=== PATIENT | female | born 1955 | race Caucasian/White ===

== ENCOUNTER 2017-05-03 07:26 | Observation (INO) | payer BC ==
[2017-05-01 11:32] LABS: BASOPHILS % 0.4 % (0.0-1.0); EOSINOPHILS # (AUTO) 0.1 (0.0-0.4); EOSINOPHILS % 1.3 % (0.0-6.0); HEMATOCRIT 40.4 % (34.2-44.1); HEMOGLOBIN 13.4 g/dL (12.0-16.0); LYMPHOCYTES # (AUTO) 3.1 (1.0-3.2); LYMPHOCYTES % 46.2 % (18.0-39.1); MEAN CORPUSCULAR HGB CONC 33.2 g/dL (31-35); MEAN CORPUSCULAR VOLUME 90.6 fL (81-99); MONOCYTES # (AUTO) 0.4 (0.2-0.8); NEUTROPHILS # (AUTO) 3.1 (2.1-6.9); NEUTROPHILS % 45.8 % (38.7-80.0); PLATELET COUNT 301 x10e3/uL (140-360); RED BLOOD COUNT 4.46 x10e6/uL (3.6-5.1); RED CELL DISTRIBUTION WIDTH 12.8 % (11.7-14.4)
[2017-05-01 11:47] LABS: INR 0.91; PROTHROMBIN TIME 12.7 seconds (11.9-14.5)
[2017-05-01 11:48] LABS: PARTIAL THROMBOPLASTIN TIME 25.1 seconds (23.8-35.5)
[2017-05-01 11:59] LABS: ANION GAP 12.8 mmol/L (8-16); BLOOD UREA NITROGEN 10 mg/dL (7-26); BUN/CREATININE RATIO 15 (6-25); CALCIUM 9.9 mg/dL (8.4-10.2); CARBON DIOXIDE 28 mmol/L (22-29); CHLORIDE 104 mmol/L (98-107); CREATININE, SERUM 0.67 mg/dL (0.57-1.11); EST GLOMERULAR FILTRATION RATE > 60 ML/MIN (60-); GLUCOSE 89 mg/dL (74-118); POTASSIUM 3.8 mmol/L (3.5-5.1); SODIUM 141 mmol/L (136-145)
--- NOTE | 2017-05-01 12:06 | Diagnostic Imaging Report ---
PROCEDURE: Frontal and lateral views of the chest. COMPARISON: None. INDICATIONS: PRE OPERATIVE CHEST X-RAY FOR C-SPINE SURGERY FINDINGS: Lines/tubes: None. Lungs: The lungs are well inflated and clear. There is no evidence of pneumonia or pulmonary edema. Pleura: There is no pleural effusion or pneumothorax. Heart and mediastinum: The heart and the mediastinum are normal. Bones: No acute bony abnormality. Cervical fusion hardware is partially visualized. IMPRESSION: 1. No acute cardiopulmonary disease. Dictated by: Chino Fiore M.D. on 05/01/2017 at 12:15 Electronically approved by: Chino Fiore M.D. on 05/01/2017 at 12:15
[~2017-05-03] VITALS: Ht 157.5 cm; Wt 59.4 kg
[~2017-05-03 07:26] MED LIST: BACITRACIN 50,000 UNIT VIAL ONE; BACLOFEN10 MG PO; GELATIN SPONGE SZ 100 ONE; HYDROCODONE PO; NAPROXEN PO; NORCO 10-325 T1 EACH PO; THROMBIN FOR SOLN 5,000 UNIT VIAL ONE; VITAMIN C500 M4 PO; VITAMIN D400 UNIT PO
[2017-05-03] MEDS ORDERED: LIDOCAINE HCL (LTA) 4 ML SOLN ONE (07:31)
[2017-05-03] MEDS ORDERED: CEFAZOLIN SOD 1 GM/NS 50ML 50 ML IV ONE (07:48)
[2017-05-03] MEDS ORDERED: CEPACOL SORE THROAT LOZENGES PO PRN (11:15)
[2017-05-03] MEDS ORDERED: MAGNESIUM/ALUMINUM/SIMETHICONE 30 ML UDC PO PRN (11:15)
[2017-05-03] MEDS ORDERED: ONDANSETRON HCL INJ 2 MG/ML VIAL IV PRN (11:15)
[2017-05-03] MEDS ORDERED: PROMETHAZINE HCL (IM) 25 MG/ML VIAL IM PRN (11:15)
[2017-05-03] MEDS ORDERED: HYDROMORPHONE 2MG/ML INJ IV PRN (11:15)
[2017-05-03] MEDS ORDERED: ACETAMINOPHEN 325 MG TAB PO PRN (11:15)
[2017-05-03] MEDS ORDERED: MORPHINE SULFATE 5 MG/ML VIAL IM PRN (11:15)
[2017-05-03] MEDS ORDERED: FENTANYL CITRATE/PF 100MCG/2 ML INJ ONE ×2 (11:43→15:21)
[2017-05-03] MEDS: CARISOPRODOL 350 MG TAB PO PRN ×3 (12:18→22:23)
[2017-05-03] MEDS: OXYCODONE/ACETAMINOPHEN 5-325 1 EACH TABLET PO PRN ×3 (12:18→22:23)
[2017-05-03 12:23] VITALS: BP 138/63
[2017-05-03 13:14] VITALS: BP 138/63
[2017-05-03] MEDS ORDERED: CEFAZOLIN SOD 1 GM/NS 50ML 50 ML IV SCH (14:00)
[2017-05-03] MEDS ORDERED: GLYCOPYRROLATE INJ 1MG/ 5 ML SYR ONE (14:12)
[2017-05-03] MEDS ORDERED: NEOSTIGMINE 1 MG/ML 10ML VIAL ONE (14:12)
[2017-05-03] MEDS ORDERED: DEXAMETHASONE SOD PHOS INJ 4 MG/ML VIAL ONE (14:12)
[2017-05-03] MEDS ORDERED: ROCURONIUM BROMIDE 10 MG/ML 5ML VIAL ONE (14:12)
[2017-05-03] MEDS ORDERED: PROPOFOL IV EMULSION 10 MG/ML 20 ML VIAL ONE (14:12)
[2017-05-03] MEDS ORDERED: ONDANSETRON HCL INJ 2 MG/ML VIAL ONE (14:12)
[2017-05-03] MEDS ORDERED: SEVOFLURANE INHAL SOLN 250 ML PEN BTL ONE (14:12)
[2017-05-03] MEDS ORDERED: EPHEDRINE SULFATE INJ 50 MG/10 ML SYR ONE (14:12)
[2017-05-03] MEDS ORDERED: LIDOCAINE HCL 2% JELLY 5 ML TUBE ONE (14:12)
[2017-05-03] MEDS ORDERED: LIDOCAINE HCL 2% LOCAL INJ 5 ML SDV VIAL INJ ONE (14:12)
[2017-05-03] MEDS ORDERED: IBUPROFEN 400 MG TAB PO PRN (14:45)
--- NOTE | 2017-05-03 15:15 | Operative Report ---
DATE OF PROCEDURE: May 03, 2017 PREOPERATIVE DIAGNOSIS: C4-5 spondylosis and foraminal stenosis above the level of previous C5-6 fusion, M50.121. POSTOPERATIVE DIAGNOSIS: C4-5 spondylosis and foraminal stenosis above the level of previous C5-C6 fusion, M50.121. PROCEDURES 1. C4-5 anterior cervical diskectomy and microsurgical osteophyte resection and allograft fusion, 24207. 2. Preparation of MTF cortical cancellous allograft, 48100. 3. C4-5 anterior cervical plating with Synthes ZP endplate, 54837. 4. Removal of C5-6 plate, . 5. Exploration of C5-6 fusion, . ANESTHESIA: General. INDICATIONS: The patient is a woman who has previously undergone C5-6 anterior cervical diskectomy, fusion, and plating by me with good results. She now presents with C4-5 spondylosis and foraminal stenosis above the level of her previous fusion, symptomatic with a right C5 radiculopathy. She was taken to the operating room for decompression of the C4-5 segment and extension of her fusion. PROCEDURE: After induction of general anesthesia, the patient was placed on the operating table in supine position. The right side of the neck was prepped and draped in sterile fashion. The fluoroscopic C-arm was positioned in cross-table lateral orientation. A transverse incision was created on right side of the neck superimposed on the C4-5 disk space as determined by fluoroscopy. The platysma was divided in line with the incision. A subplatysmal dissection was carried out. An avascular plane of dissection was developed medial to the sternocleidomastoid muscle and was followed medial to the carotid sheath through the previous scar layer to the anterior border of the cervical spine. The deep cervical fascia was opened. The scar layer overlying the previous anterior cervical plate was resected and the plate was exposed. Each of the 4 locking screws and bone screws within the previous plate were unscrewed and removed. The plate was mobilized and removed. The C5-6 fusion was explored and found to be solid. Attention was directed to the C4-5 segment. The anterior longitudinal ligament was resected. The anterior osteophyte was resected. Ridgway posts were inserted into C4 and C5. The Ridgway distractor was used to distract the disk space. The anterior annulus of the disk was incised with a #11 blade and the contents of the disk were thoroughly evacuated with angled curettes and pituitary rongeurs. The posterior osteophytes were meticulously drilled until they were completely removed. The posterior annulus of the disk was resected. Herniated disk material was resected. The posterior longitudinal ligament was completely resected from [id number] to fully expose and decompress the origins of the corresponding nerve roots. The medial aspects of the uncinate processes were resected to further expose and decompress the origins of both nerve roots particularly on the right side. After satisfactory decompression had been achieved, the endplates were prepared for fusion. The disk space was sized and found to be 7 mm in height. A piece of MTF cortical cancellous allograft, measuring 7 mm in thickness, was selected and prepared in saline and loaded onto a Synthes ZP endplate. The construct was then inserted into the C4-C5 disk space under lateral fluoroscopic guidance and tamped in place until the plate was flush with the anterior margin of the vertebral bodies. The plate was then screwed to the endplates of C4 and C5 with 2 pairs of 14 mm screws. All screws were locked. An excellent construct was obtained. The wound was copiously irrigated with Bacitracin solution. Meticulous hemostasis was secured. Retractor was removed. The platysma was closed with 3-0 Vicryl sutures. The skin was closed with 4-0 Monocryl sutures in a subcuticular fashion. Steri-Strips and dressing were applied. The patient was awakened, extubated, and taken to postanesthesia care unit in stable condition. No intraoperative complications were encountered. Estimated blood loss was 10 mL. Job#: [id number] MAIA
[2017-05-03] MEDS ORDERED: MIDAZOLAM HCL 2 MG/2 ML VIAL ONE (15:21)
[2017-05-03 16:10] VITALS: BP 115/67
[2017-05-03] MEDS: LACTATED RINGER'S 1,000 ML IV SCH ×2 (16:40→22:24)
[2017-05-03] MEDS: BACLOFEN 10 MG TAB PO SCH (17:00)
[2017-05-03] MEDS: CEFAZOLIN SOD 1 GM VIAL IV SCH (17:15)
[2017-05-03 20:05] VITALS: BP 106/51
[2017-05-03] MEDS ORDERED: ZOLPIDEM TARTRATE 5 MG TAB PO PRN (21:00)
[2017-05-03 23:00] VITALS: BP 84/48
[2017-05-04 00:10] VITALS: BP 94/53
[2017-05-04] MEDS: CEFAZOLIN SOD 1 GM VIAL IV SCH ×2 (01:54→09:12)
[2017-05-04] MEDS: OXYCODONE/ACETAMINOPHEN 5-325 1 EACH TABLET PO PRN ×2 (02:35→06:29)
[2017-05-04] MEDS: CARISOPRODOL 350 MG TAB PO PRN ×2 (02:35→06:29)
[2017-05-04] MEDS: LACTATED RINGER'S 1,000 ML IV SCH (04:11)
[2017-05-04 05:00] VITALS: BP 104/56
[2017-05-04 08:26] VITALS: BP 103/51
[2017-05-04] MEDS ORDERED: HYDROCODONE/APAP 10MG-325MG TAB PO SCH (09:00)
[2017-05-04] MEDS: BACLOFEN 10 MG TAB PO SCH (09:11)
--- NOTE | 2017-05-04 11:40 | Diagnostic Imaging Report ---
C-SPINE 2 VIEWS AP LATERAL Comparison: None available Clinical history: Status post surgery Findings: Postsurgical change status post C4-5 ACDF with interbody spacer. There is fusion of C5-6. Slight straightening of the normal cervical lordosis with minimal retrolisthesis of C3 on C4. Degenerative changes at are noted primarily at C3-4, C6-7. Impression: Postsurgical changes status post C4-5 ACDF. Signed by: Dr Jasmyn Iyer MD on 05/04/2017 6:54 AM
== END 2017-05-04 09:31 | disposition home or self-care (01) ==
LOC: OR 07:26 → IMCU 11:39
PROVIDERS: ADMIT Neurological Surgery; ATTEND Neurological Surgery
DX: M50.121 Cervical disc disorder at C4-C5 level with radiculopathy (principal); M47.22 Other spondylosis with radiculopathy, cervical region; M19.90 Unspecified osteoarthritis, unspecified site; M47.896 Other spondylosis, lumbar region; M81.0 Age-related osteoporosis without current pathological fracture; F17.210 Nicotine dependence, cigarettes, uncomplicated
CPT/HCPCS: 20931; 22551; 22830; 22845; 22855; 36415; 71020; 72040; 76000; 80048; 85025; 85610; 85730; 86850; 86900; 88300; 88304; 93005; C1713 ×2; G0378 ×2; J0690 ×2; J1100; J2001 ×2; J2250; J2270; J2405; J2710; J7120

== ENCOUNTER → 2017-08-23 | Outpatient (CLI) | payer BC ==
[~2017-08-23] MED LIST changes: -BACITRACIN 50,000 UNIT VIAL ONE; -GELATIN SPONGE SZ 100 ONE; -THROMBIN FOR SOLN 5,000 UNIT VIAL ONE
[2017-08-23 08:47] LABS: BASOPHILS % 0.5 % (0.0-1.0); EOSINOPHILS # (AUTO) 0.2 (0.0-0.4); EOSINOPHILS % 2.9 % (0.0-6.0); HEMATOCRIT 37.9 % (34.2-44.1); HEMOGLOBIN 12.8 g/dL (12.0-16.0); LYMPHOCYTES # (AUTO) 3.6 (1.0-3.2); LYMPHOCYTES % 55.8 % (18.0-39.1); MEAN CORPUSCULAR HEMOGLOBIN 30.2 pg (28-32); MEAN CORPUSCULAR HGB CONC 33.8 g/dL (31-35); MEAN CORPUSCULAR VOLUME 89.4 fL (81-99); MONOCYTES # (AUTO) 0.5 (0.2-0.8); MONOCYTES % 8.2 % (4.4-11.3); NEUTROPHILS # (AUTO) 2.1 (2.1-6.9); NEUTROPHILS % 32.4 % (38.7-80.0); PLATELET COUNT 226 x10e3/uL (140-360); RED BLOOD COUNT 4.24 x10e6/uL (3.6-5.1); RED CELL DISTRIBUTION WIDTH 12.8 % (11.7-14.4)
[2017-08-23 08:50] LABS: BILIRUBIN,URINE NEGATIVE (NEGATIVE); CLARITY,URINE CLEAR (CLEAR); COLOR,URINE YELLOW (YELLOW); KETONES,URINE NEGATIVE (NEGATIVE); LEUKOCYTE ESTERASE ,URINE NEGATIVE (NEGATIVE); NITRITE,URINE NEGATIVE (NEGATIVE); PROTEIN,URINE DIPSTICK NEGATIVE (NEGATIVE); URINE UROBILINOGEN 0.2 mg/dL (0.2 - 1)
[2017-08-23 08:56] LABS: INR 1.05; PROTHROMBIN TIME 12.9 seconds (11.9-14.5)
[2017-08-23 09:05] LABS: ALANINE AMINOTRANSFERASE 17 IU/L (0-55); ALBUMIN 4.3 g/dL (3.5-5.0); ALBUMIN/GLOBULIN RATIO 1.4 (0.8-2.0); ALKALINE PHOSPHATASE 80 IU/L (40-150); ANION GAP 12.6 mmol/L (8-16); BLOOD UREA NITROGEN 10 mg/dL (7-26); BUN/CREATININE RATIO 15 (6-25); CALCIUM 10.1 mg/dL (8.4-10.2); CARBON DIOXIDE 28 mmol/L (22-29); CHLORIDE 102 mmol/L (98-107); CREATININE, SERUM 0.67 mg/dL (0.57-1.11); EST GLOMERULAR FILTRATION RATE > 60 ML/MIN (60-); GLUCOSE 101 mg/dL (74-118); POTASSIUM 4.6 mmol/L (3.5-5.1); SODIUM 138 mmol/L (136-145)
== END ==
LOC: LAB 08:21
PROVIDERS: ATTEND Orthopaedic Surgery Orthopaedic Surgery of the Spine
DX: Z01.810 Encounter for preprocedural cardiovascular examination (principal)
CPT/HCPCS: 36415; 80053; 81003; 85025; 85610

== ENCOUNTER → 2017-10-23 | Outpatient (CLI) | payer BC ==
--- NOTE | 2017-10-23 10:29 | Diagnostic Imaging Report ---
PROCEDURE:C-SPINE AP AND LAT WITH FLEX AND EXT COMPARISON:05/04/2017. INDICATIONS:POST CERVICAL SPINE SURGERY FINDINGS: The cervical spine is visualized from the skull base to the top of T1 on the lateral radiograph. Stable postsurgical changes related to anterior fusion and intervertebral spacer placement at C4-5. Hardware is unchanged in position. As before, the C5 and C6 vertebral bodies are fused. Flexion and extension radiographs show no evidence of inducible malalignment. Prevertebral soft tissues are of normal thickness. CONCLUSION: Stable postsurgical changes of the cervical spine without evidence of inducible malalignment. Dictated by: Addison Santiago M.D. on 10/23/2017 at 10:32 Electronically approved by: Addison Santiago M.D. on 10/23/2017 at 10:32
== END | disposition home or self-care (01) ==
LOC: RAD 09:30
PROVIDERS: ATTEND Neurological Surgery
DX: M50.20 Other cervical disc displacement, unspecified cervical region (principal); Z98.1 Arthrodesis status
CPT/HCPCS: 72050